=== PATIENT | female | born 1955 | race Caucasian/White ===

== ENCOUNTER → 2019-10-22 | Outpatient (CLI) | payer MEDICARE, MEDICAID, SELFPAY ==
[2019-10-22 07:45] LABS: Hemoglobin 12.7 g/dL (12.0-15.0); Mean Corp Hgb Conc 31.8 g/dL (32-36); Mean Corpuscular Hgb 30.6 pg (27.0-32.0); Mean Corpuscular Volume 96.4 fL (81-99); Mean Platelet Vol. 10.2 fl (6.2-12.0); Platelet Count 285 K/mm3 (150-450); RBC Distribution Width CV 13.1 % (11.6-14.6); RBC Distribution Width SD 45.8 fl (35.1-43.9); Red Blood Count 4.15 M/mm3 (4.2-5.4); White Blood Count 8.1 K/mm3 (4.4-11.0)
[2019-10-22 08:06] LABS: Valproic Acid (Depakene) Level 46 ug/mL (50-100)
[2019-10-22 08:16] LABS: ALB/GLOB Ratio 0.9 RATIO (0.9-2.4); AST(SGOT) 11 U/L (15-37); Alanine Aminotransfer ALT/SGPT 18 U/L (13-56); Albumin, Serum 3.4 g/dL (3.2-5.0); Alkaline Phosphatase 83 U/L (45-117); Anion Gap 2 (5-15); BUN 18 mg/dL (7-18); BUN/Creat Ratio 23.3 RATIO (10-20); Calcium,Total 8.9 mg/dL (8.5-10.1); Chloride 108 mmol/L (98-107); Cholesterol 103 mg/dL (200); Creatinine, Serum 0.77 mg/dL (0.55-1.02); EST Glomerular Filtration Rate 80 mL/min (>60); Est Glom Filt Rate - Afr Amer 97 mL/min (>60); Globulin 3.8 g/dL (2.2-4.2); Glucose 102 mg/dL (74-106); High Density Lipoprotein 56 mg/dL; Potassium 4.6 mmol/L (3.5-5.1); Protein, Total 7.2 g/dL (6.4-8.2); Sodium Level 142 mmol/L (136-145); Thyroid Stim Hormone (TSH) 1.55 uIU/mL (0.358-3.74); Triglycerides 85 mg/dL; Very Low Density Lipoprotein 17 mg/dL (5-40)
[2019-10-24 09:30] LABS: Vitamin B12 492 pg/mL (211-911); Vitamin D,25 Hydroxy 42.6 ng/mL
== END | disposition home or self-care (01) ==
LOC: LAB 07:06
PROVIDERS: PCP Internal Medicine Geriatric Medicine; Referring Provider Internal Medicine Geriatric Medicine; Visit Provider Internal Medicine Geriatric Medicine
DX: I10 Essential (primary) hypertension (principal); E11.8 Type 2 diabetes mellitus with unspecified complications; E03.9 Hypothyroidism, unspecified
CPT/HCPCS: 36415; 80053; 80061; 80164; 82306; 82607; 84443; 85027